=== PATIENT | female | born 1960 | race Caucasian/White ===

== ENCOUNTER 2019-01-16 00:14 | Emergency (ER) | payer BC ==
[~2019-01-16] VITALS: Ht 152.4 cm; Wt 86.2 kg
[2019-01-16] MEDS ORDERED: ONDANSETRON HCL INJ 2MG/ML 2ML 2 MG/ML VIAL IV STA (00:25)
[2019-01-16] MEDS ORDERED: ACETAMINOPHEN 1000 MG/100 ML IV STA (00:29)
--- NOTE | 2019-01-16 00:29 | NUR ---
PT VOMITING NOW, MD AWARE
[2019-01-16] MEDS ORDERED: CEFTRIAXONE SOD 1 GM/NS 50 ML 50 ML IV ONE (00:30)
[2019-01-16] MEDS ORDERED: ACETAMINOPHEN 325 MG TAB PO ONE (00:30)
[2019-01-16] MEDS ORDERED: SODIUM CHLORIDE 0.9% 1000ML 1,000 ML IV ONE ×2 (00:30→01:15)
[2019-01-16] MEDS ORDERED: ACETAMINOPHEN 325 MG TAB ONE (00:33)
[2019-01-16] MEDS ORDERED: ACETAMINOPHEN 1000 MG/100 ML 100 ML IV ONE (00:34)
[2019-01-16] MEDS ORDERED: SODIUM CHLORIDE 0.9% 1000ML 1,000 ML ONE (00:34)
[2019-01-16 00:38] LABS: BASOPHILS # (AUTO) 0.1 (0.0-0.1); BASOPHILS % 0.9 % (0.0-1.0); EOSINOPHILS # (AUTO) 0.3 (0.0-0.4); HEMATOCRIT 43.1 % (34.2-44.1); HEMOGLOBIN 14.6 g/dL (12.0-16.0); LYMPHOCYTES # (AUTO) 2.2 (1.0-3.2); LYMPHOCYTES % 25.1 % (18.0-39.1); MEAN CORPUSCULAR HEMOGLOBIN 30.5 pg (28-32); MEAN CORPUSCULAR HGB CONC 33.9 g/dL (31-35); MEAN CORPUSCULAR VOLUME 90.2 fL (81-99); MONOCYTES # (AUTO) 0.1 (0.2-0.8); NEUTROPHILS % 69.5 % (38.7-80.0); PLATELET COUNT 303 x10e3/uL (140-360); RED BLOOD COUNT 4.78 x10e6/uL (3.6-5.1); RED CELL DISTRIBUTION WIDTH 13.4 % (11.7-14.4)
[2019-01-16 00:41] LABS: BILIRUBIN,URINE NEGATIVE (NEGATIVE); CLARITY,URINE CLOUDY (CLEAR); COLOR,URINE YELLOW (YELLOW); KETONES,URINE NEGATIVE (NEGATIVE); LEUKOCYTE ESTERASE ,URINE SMALL (NEGATIVE); NITRITE,URINE NEGATIVE (NEGATIVE); URINE UROBILINOGEN 0.2 mg/dL (0.2 - 1)
[2019-01-16 00:42] LABS: PROTEIN,URINE DIPSTICK 3+ (NEGATIVE)
[2019-01-16 00:55] LABS: BACTERIA,URINE MODERATE /HPF; EPITHELIAL CELLS,URINE FEW /LPF; WBC,URINE (MAN) >50 /HPF (0-5)
[2019-01-16 00:56] LABS: RENAL EPITHELIAL CELLS,URINE FEW
[2019-01-16 01:01] LABS: ALANINE AMINOTRANSFERASE 32 IU/L (0-55); ALBUMIN 3.9 g/dL (3.5-5.0); ALBUMIN/GLOBULIN RATIO 1.4 (0.8-2.0); ALKALINE PHOSPHATASE 92 IU/L (40-150); ANION GAP 18.6 mmol/L (8-16); BLOOD UREA NITROGEN 7 mg/dL (7-26); BUN/CREATININE RATIO 8 (6-25); CALCIUM 9.4 mg/dL (8.4-10.2); CARBON DIOXIDE 24 mmol/L (22-29); CHLORIDE 100 mmol/L (98-107); CREATININE, SERUM 0.93 mg/dL (0.57-1.11); EST GLOMERULAR FILTRATION RATE > 60 ML/MIN (60-); GLUCOSE 121 mg/dL (74-118); POTASSIUM 3.6 mmol/L (3.5-5.1); SODIUM 139 mmol/L (136-145)
--- NOTE | 2019-01-16 01:44 | Diagnostic Imaging Report ---
EXAMINATION: CHEST SINGLE (PORTABLE) INDICATION: Fever. COMPARISON: 11/05/2016. FINDINGS: TUBES and LINES: None. LUNGS: Lungs are well inflated. Lungs are clear. There is mild prominence of the central pulmonary vasculature, possibly related to portable technique. PLEURA: No pleural effusion or pneumothorax. HEART AND MEDIASTINUM: Cardiac size is mildly enlarged. BONES AND SOFT TISSUES: No acute osseous lesion. Soft tissues are unremarkable. UPPER ABDOMEN: No free air under the diaphragm. IMPRESSION: Possible mild pulmonary venous congestion. Signed by: Dr. Kanchan Bojorquez M.D. on 01/16/2019 1:41 AM
== END 2019-01-16 02:19 | disposition home or self-care (01) ==
LOC: ER 00:14
DX: R50.9 Fever, unspecified (principal); M54.5 Low back pain; R11.2 Nausea with vomiting, unspecified; N30.91 Cystitis, unspecified with hematuria; R05 Cough; F17.210 Nicotine dependence, cigarettes, uncomplicated
CPT/HCPCS: 36415; 71045; 80053; 81001; 83605; 85025; 87040; 87086; 87186; 99284; J0131; J0696; J2405; J7030